=== PATIENT | female | born 1950 | race Caucasian/White ===

== ENCOUNTER 2021-11-02 18:59 | Inpatient (IN) ==
[2021-11-02] MEDS ORDERED: Naloxone 0.4 MG/ML INJ IVP PRN (23:36)
[2021-11-02] MEDS ORDERED: Ringers Solution, Lactated 250 ML IVC PRN (23:41)
[2021-11-02] MEDS ORDERED: Albumin 25% 25gram/100mL 25 GM/100 ML IV.SOLN IVPB ONE (23:41)
[2021-11-02] MEDS ORDERED: Ringers Solution, Lactated 250 ML IVC ONE (23:43)
[2021-11-03] MEDS ORDERED: Dextrose Gel 15 GM/37.5 ML TUBE PO PRN ×2 (00:12)
[2021-11-03] MEDS ORDERED: D5% in Water 1,000 ML IVC PRN (00:12)
[2021-11-03] MEDS ORDERED: *HR* Dextrose 50 % in Water (Syg) 50 ML SYRINGE IVP PRN (00:12)
[2021-11-03] MEDS ORDERED: Ringers Solution, Lactated 1,000 ML IVC SCH (00:15)
[2021-11-03 00:22] LABS: Basophils % 0.2 %; Eosinophils # 0.2 K/mcL (0.0-0.6); Eosinophils % 1.5 %; Hematocrit 25.8 % (35.3-44.9); Hemoglobin 7.6 g/dL (11.5-15.4); Immature Granulocytes % 1.2 % (0-4); Lymphocytes # 1.4 K/mcL (0.6-4.6); Lymphocytes % 10.3 %; Mean Corpuscular HGB Conc 29.5 g/dL (31.6-35.5); Mean Corpuscular Hemoglobin 20.2 pg (28.0-33.3); Mean Corpuscular Volume 68.6 fL (83.0-100.0); Monocytes # 0.9 K/mcL (0.0-1.3); Monocytes % 6.9 %; Neutrophils # 10.7 K/mcL (1.6-8.9); Platelet Count 392 K/mcL (140-400); Red Blood Count 3.76 M/mcL (3.82-4.97); Red Cell Distribution Width 19.3 % (11.5-14.5); Segmented Neutrophils % 79.9 %; White Blood Count 13.4 K/mcL (4.3-11.1)
[2021-11-03 00:37] LABS: Albumin 3.3 g/dL (3.5-5.7); Albumin/Globulin Ratio 1.3 (1.1-2.2); Bilirubin,Total 0.5 mg/dL (0.3-1.0); Calcium 8.1 mg/dL (8.6-10.3); Globulin 2.6 g/dL (2.4-3.5); Magnesium 1.9 mg/dL (1.6-2.6); Phosphorous 6.3 mg/dL (2.7-4.5); Total Protein 5.9 g/dL (6.4-8.9)
[2021-11-03 00:39] LABS: Prothrombin Time 11.6 Seconds (9.4-12.1)
[2021-11-03 00:41] LABS: Anisocytosis 1+ (Not Present); Microcytosis Present (Not Present); Platelet Estimate Normal (Normal)
[2021-11-03 00:52] LABS: Thyroid Stimulating Hormone 1.306 mcIU/mL (0.340-5.600)
[2021-11-03] MEDS: Cefepime HCl 1,000 MG in 0.9 % Sodium Chloride 10 ML IVP SCH ×3 (00:58→19:55)
[2021-11-03] MEDS ORDERED: Ringers Solution, Lactated 500 ML IVC ONE (01:21)
[2021-11-03] MEDS ORDERED: Ipratropium/Albuterol Neb 3 ML IH PRN (01:35)
[2021-11-03 02:45] LABS: Folate 9.6 ng/mL (3.0-16.0)
[2021-11-03] MEDS ORDERED: 0.9 % Sodium Chloride 250 ML ONE (04:10)
[2021-11-03] MEDS ORDERED: Albumin 25% 25gram/100mL 25 GM/100 ML IV.SOLN IVPB ONE (04:31)
[2021-11-03 05:59] LABS: Sodium, Urine 30.1 mEq/L
[2021-11-03 06:01] LABS: Bacteria,Urine Few per hpf (None-Few); Bilirubin,Urine Negative (Negative); Blood,Urine Small (Negative); Clarity,Urine Turbid (Clear); Color,Urine Light-Yellow (Yellow); Glucose,Urine (UA) Normal (Normal); Ketones,Urine Negative (Negative); Leukocyte Esterase,Urine Negative (Negative); Mucus,Urine Few per lpf (None-Few); Nitrite,Urine Negative (Negative); Protein,Urine 70 mg/dL (Neg-Trace); Specific Gravity,Urine 1.009 (1.010-1.025); Squamous Epithelial Cell,Urine Few per hpf (None-Few); Urobilinogen,Urine Normal (Normal)
[2021-11-03] MEDS: Norepinephrine 4 MG/254 ML IV.SOLN IVC SCH ×3 (06:07→22:02)
[2021-11-03] MEDS: Pantoprazole 40 MG VIAL IVP SCH (09:12)
[2021-11-03] MEDS: Cyanocobalamin (B-12) 1,000 MCG/ML VIAL SQ SCH (09:15)
[2021-11-03] MEDS: Insulin LISPRO 300 UNITS/3 ML VIAL SUBQ SCH ×4 (09:21→22:50)
[2021-11-03 11:59] LABS: Protein/Creatinine Ratio,Urine 1.56 mg/mg (0.00-0.20)
[2021-11-03] MEDS ORDERED: 0.9 % Sodium Chloride 1,000 ML IVC SCH (12:45)
[2021-11-03 15:06] LABS: Calcium 8.2 mg/dL (8.6-10.3); Potassium 3.6 mEq/L (3.5-5.1)
[2021-11-03] MEDS: Albumin Human 5% 12.5 GM/250 ML IV.SOLN IVC SCH ×2 (15:34→19:51)
[2021-11-03] MEDS: *HR* Heparin 5,000 UNIT/ML VIAL SQ SCH (22:03)
[2021-11-04] MEDS: Norepinephrine 4 MG/254 ML IV.SOLN IVC SCH ×3 (02:41→20:11)
[2021-11-04 05:18] LABS: Albumin 3.7 g/dL (3.5-5.7); Calcium 8.8 mg/dL (8.6-10.3); Phosphorous 6.4 mg/dL (2.7-4.5); Potassium 3.6 mEq/L (3.5-5.1); Uric Acid 6.5 mg/dL (2.3-7.6)
[2021-11-04 05:40] LABS: Vitamin D 25 Hydroxy 50 ng/mL (30-80)
[2021-11-04] MEDS: *HR* Heparin 5,000 UNIT/ML VIAL SQ SCH ×3 (05:53→21:08)
[2021-11-04 05:59] LABS: Hepatitis B Surface Antigen Nonreactive (Nonreactive)
[2021-11-04 06:29] LABS: Hepatitis A Antibody IgM Nonreactive (Nonreactive); Hepatitis B Core IgM Nonreactive (Nonreactive)
[2021-11-04 06:30] LABS: Hepatitis C Virus Antibody Nonreactive (Nonreactive)
[2021-11-04] MEDS: Insulin LISPRO 300 UNITS/3 ML VIAL SUBQ SCH ×4 (07:55→20:10)
[2021-11-04] MEDS: Pantoprazole 40 MG VIAL IVP SCH (07:56)
[2021-11-04] MEDS: Cyanocobalamin (B-12) 1,000 MCG/ML VIAL SQ SCH (07:56)
[2021-11-04] MEDS: Cefepime HCl 1,000 MG in 0.9 % Sodium Chloride 10 ML IVP SCH (07:56)
[2021-11-04 09:35] LABS: Basophils # 0.1 K/mcL (0.0-0.2); Basophils % 0.4 %; Eosinophils # 0.2 K/mcL (0.0-0.6); Eosinophils % 1.5 %; Hemoglobin 8.7 g/dL (11.5-15.4); Lymphocytes # 0.8 K/mcL (0.6-4.6); Lymphocytes % 6.3 %; Mean Corpuscular Hemoglobin 20.9 pg (28.0-33.3); Mean Corpuscular Volume 72.1 fL (83.0-100.0); Monocytes # 1.3 K/mcL (0.0-1.3); Monocytes % 9.6 %; Neutrophils # 10.9 K/mcL (1.6-8.9); Platelet Count 425 K/mcL (140-400); Red Blood Count 4.16 M/mcL (3.82-4.97); Red Cell Distribution Width 20.6 % (11.5-14.5); Segmented Neutrophils % 81.2 %; White Blood Count 13.4 K/mcL (4.3-11.1)
[2021-11-04] MEDS: 0.9 % Sodium Chloride 1,000 ML IVC SCH ×2 (11:31→20:11)
[2021-11-04 14:30] LABS: VBG HCO3 33 mEq/L (21-27); VBG PCO2 71 mmHg (41-51); VBG PH 7.27 pH Units (7.32-7.42); VBG PO2 49 mmHg (25-50)
[2021-11-04 14:52] LABS: Potassium 3.4 mEq/L (3.5-5.1)
[2021-11-04] MEDS: Piperacillin/Tazobactam 3.375 GM in 0.9 % Sodium Chloride Mini Bag 100 ML IVPB SCH (23:27)
[2021-11-05 03:46] LABS: Potassium 4.2 mEq/L (3.5-5.1)
[2021-11-05 03:47] LABS: Calcium 8.1 mg/dL (8.6-10.3)
[2021-11-05] MEDS: Melatonin 3 MG TABLET PO PRN (04:16)
[2021-11-05] MEDS: *HR* Heparin 5,000 UNIT/ML VIAL SQ SCH ×3 (04:32→21:46)
[2021-11-05 04:46] LABS: Basophils % 0.4 %; Hemoglobin 7.6 g/dL (11.5-15.4); Red Cell Distribution Width 20.8 % (11.5-14.5)
[2021-11-05 04:48] LABS: Basophils # 0.1 K/mcL (0.0-0.2); Eosinophils # 0.3 K/mcL (0.0-0.6); Eosinophils % 2.3 %; Lymphocytes # 1.2 K/mcL (0.6-4.6); Lymphocytes % 9.9 %; Mean Corpuscular HGB Conc 29.2 g/dL (31.6-35.5); Mean Corpuscular Hemoglobin 21.4 pg (28.0-33.3); Mean Corpuscular Volume 73.2 fL (83.0-100.0); Monocytes # 1.3 K/mcL (0.0-1.3); Neutrophils # 8.8 K/mcL (1.6-8.9); Platelet Count 359 K/mcL (140-400); Red Blood Count 3.55 M/mcL (3.82-4.97); Segmented Neutrophils % 75.4 %; White Blood Count 11.7 K/mcL (4.3-11.1)
[2021-11-05 05:25] LABS: Anisocytosis 1+ (Not Present); Hypochromasia Present (Not Present); Platelet Estimate Normal (Normal)
[2021-11-05] MEDS: Norepinephrine 4 MG/254 ML IV.SOLN IVC SCH (08:26)
[2021-11-05] MEDS: Insulin LISPRO 300 UNITS/3 ML VIAL SUBQ SCH ×3 (08:26→20:19)
[2021-11-05] MEDS: Piperacillin/Tazobactam 3.375 GM in 0.9 % Sodium Chloride Mini Bag 100 ML IVPB SCH ×3 (08:33→23:27)
[2021-11-05] MEDS: Cyanocobalamin (B-12) 1,000 MCG/ML VIAL SQ SCH (08:35)
[2021-11-05] MEDS: *HR* OxyCODONE/APAP 5/325 TABLET PO PRN (15:21)
[2021-11-05] MEDS: Albuterol 2.5 MG/3 ML NEBULIZER IH SCH ×2 (15:42→23:08)
[2021-11-05] MEDS ORDERED: Sennosides 8.6 MG TABLET PO PRN (22:44)
[2021-11-06 01:33] LABS: Basophils % 0.4 %; Hematocrit 26.5 % (35.3-44.9); Hemoglobin 7.6 g/dL (11.5-15.4); Immature Granulocytes % 0.8 % (0-4); Mean Corpuscular HGB Conc 28.7 g/dL (31.6-35.5); Platelet Count 334 K/mcL (140-400)
[2021-11-06 01:34] LABS: Basophils # 0.1 K/mcL (0.0-0.2); Eosinophils # 0.3 K/mcL (0.0-0.6); Eosinophils % 2.8 %; Lymphocytes # 0.9 K/mcL (0.6-4.6); Lymphocytes % 8.2 %; Mean Corpuscular Volume 73.2 fL (83.0-100.0); Mean Platelet Volume 8.7 fL (9.4-12.4); Monocytes # 0.9 K/mcL (0.0-1.3); Monocytes % 7.7 %; Neutrophils # 9.1 K/mcL (1.6-8.9); Red Blood Count 3.62 M/mcL (3.82-4.97); Segmented Neutrophils % 80.1 %; White Blood Count 11.3 K/mcL (4.3-11.1)
[2021-11-06 01:51] LABS: Hypochromasia Present (Not Present); Platelet Estimate Normal (Normal)
[2021-11-06 01:53] LABS: Potassium 3.2 mEq/L (3.5-5.1)
[2021-11-06] MEDS ORDERED: *HR* Heparin 5,000 UNIT/ML VIAL IVP ONE ×2 (02:19→02:27)
[2021-11-06] MEDS ORDERED: *HR* Heparin 5,000 UNIT/ML VIAL IVP PRN ×4 (02:19→02:27)
[2021-11-06] MEDS ORDERED: Heparin 25,000UNIT/250ML 1/2NS 25,000 UNIT/250 ML IV.SOLN IVC SCH (02:30)
[2021-11-06] MEDS: Heparin 25,000UNIT/250ML 1/2NS 25,000 UNIT/250 ML IV.SOLN IVC SCH ×2 (03:14→23:20)
[2021-11-06] MEDS: *HR* OxyCODONE/APAP 5/325 TABLET PO PRN (03:32)
[2021-11-06 03:39] LABS: Hemoglobin 7.7 g/dL (11.5-15.4); Mean Platelet Volume 8.9 fL (9.4-12.4); Red Cell Distribution Width 21.2 % (11.5-14.5)
[2021-11-06 03:40] LABS: Mean Corpuscular HGB Conc 28.5 g/dL (31.6-35.5); Mean Corpuscular Hemoglobin 21.3 pg (28.0-33.3); Mean Corpuscular Volume 74.6 fL (83.0-100.0); Platelet Count 352 K/mcL (140-400); Red Blood Count 3.62 M/mcL (3.82-4.97); White Blood Count 11.6 K/mcL (4.3-11.1)
[2021-11-06 03:52] LABS: Heparin anti-factor XA UFH < 0.04 IU/mL (0.30-0.70); INR 1.1; Prothrombin Time 12.5 Seconds (9.4-12.1)
[2021-11-06] MEDS: Ondansetron ODT 4 MG TAB.RAPDIS SL PRN ×2 (04:59→23:30)
[2021-11-06] MEDS: Insulin LISPRO 300 UNITS/3 ML VIAL SUBQ SCH ×5 (07:17→19:58)
[2021-11-06] MEDS: Albuterol 2.5 MG/3 ML NEBULIZER IH SCH ×3 (07:21→23:56)
[2021-11-06] MEDS: Piperacillin/Tazobactam 3.375 GM in 0.9 % Sodium Chloride Mini Bag 100 ML IVPB SCH ×3 (07:55→23:21)
[2021-11-06] MEDS: Cyanocobalamin (B-12) 1,000 MCG/ML VIAL SQ SCH (07:56)
[2021-11-06] MEDS: Aspirin Enteric Coated 81 MG Tablet PO SCH (07:56)
[2021-11-06] MEDS ORDERED: Furosemide 40 MG/4 ML VIAL IVP ONE (08:54)
[2021-11-06] MEDS ORDERED: Perflutren Lipid Microsphere 1.3 ML in 0.9 % Sodium Chloride 8.7 ML IVP PRN (08:56)
[2021-11-06] MEDS ORDERED: Ringers Solution, Lactated 1,000 ML IVC SCH (09:15)
[2021-11-06] MEDS ORDERED: traZODone 50 MG TABLET PO PRN (10:20)
[2021-11-06 11:00] LABS: ABG Base Excess 8 mEq/L (-2 to 3); ABG HCO3 35 mEq/L (21-27); ABG Oxygen Saturation 90 % (95-98); ABG PCO2 66 mmHg (35-45); ABG PH 7.33 pH Units (7.32-7.45); ABG PO2 64 mmHg (85-104); ABG TCO2 37 mEq/L (20-26)
[2021-11-06 12:10] LABS: Adenovirus Not Detected (Not Detect); Bordetella Pertussis Not Detected (Not Detect); Chlamydophila pneumoniae Not Detected (Not Detect); Coronavirus 229E Not Detected (Not Detect); Coronavirus HKU1 Not Detected (Not Detect); Coronavirus NL63 Not Detected (Not Detect); Coronavirus OC43 Not Detected (Not Detect); Human Metapneumovirus Not Detected (Not Detect); Human Rhinovirus/Enterovirus Not Detected (Not Detect); Influenza A Subtype 2009 H1 Not Detected (Not Detect); Influenza B Not Detected (Not Detect); Mycoplasma pneumoniae Not Detected (Not Detect); Parainfluenza Virus 1 Not Detected (Not Detect); Parainfluenza Virus 2 Not Detected (Not Detect); Parainfluenza Virus 3 Not Detected (Not Detect); Parainfluenza Virus 4 Not Detected (Not Detect); Respiratory Syncytial Virus Not Detected (Not Detect); SARS-CoV-2 Not Detected (Not Detect)
[2021-11-07 05:46] LABS: Mean Corpuscular Volume 74.7 fL (83.0-100.0); Red Cell Distribution Width 21.4 % (11.5-14.5)
[2021-11-07 05:47] LABS: Hematocrit 24.5 % (35.3-44.9); Hemoglobin 7.1 g/dL (11.5-15.4); Mean Corpuscular Hemoglobin 21.6 pg (28.0-33.3); Mean Platelet Volume 8.9 fL (9.4-12.4); Platelet Count 352 K/mcL (140-400); Red Blood Count 3.28 M/mcL (3.82-4.97); White Blood Count 8.7 K/mcL (4.3-11.1)
[2021-11-07 06:15] LABS: Calcium 9.2 mg/dL (8.6-10.3); Potassium 3.6 mEq/L (3.5-5.1)
[2021-11-07] MEDS: Albuterol 2.5 MG/3 ML NEBULIZER IH SCH (07:48)
[2021-11-07] MEDS ORDERED: Iron Sucrose Complex 250 MG in 0.9 % Sodium Chloride 250 ML IVPB SCH (09:00)
[2021-11-07] MEDS: Insulin LISPRO 300 UNITS/3 ML VIAL SUBQ SCH ×3 (13:19→20:30)
[2021-11-07] MEDS ORDERED: Albuterol 2.5 MG/3 ML NEBULIZER IH PRN (13:33)
[2021-11-07] MEDS: Albumin 25% 25gram/100mL 25 GM/100 ML IV.SOLN IVPB SCH ×2 (15:10→20:45)
[2021-11-07] MEDS: Piperacillin/Tazobactam 3.375 GM in 0.9 % Sodium Chloride Mini Bag 100 ML IVPB SCH (15:10)
[2021-11-07 16:12] LABS: Basophils % 0.5 %; Hemoglobin 7.2 g/dL (11.5-15.4); Immature Granulocytes % 0.5 % (0-4)
[2021-11-07 16:13] LABS: Eosinophils # 0.3 K/mcL (0.0-0.6); Eosinophils % 3.7 %; Hematocrit 25.1 % (35.3-44.9); Lymphocytes % 13.1 %; Mean Corpuscular HGB Conc 28.7 g/dL (31.6-35.5); Mean Corpuscular Hemoglobin 21.6 pg (28.0-33.3); Mean Corpuscular Volume 75.1 fL (83.0-100.0); Mean Platelet Volume 8.7 fL (9.4-12.4); Monocytes # 0.8 K/mcL (0.0-1.3); Monocytes % 9.5 %; Platelet Count 342 K/mcL (140-400); Red Blood Count 3.34 M/mcL (3.82-4.97); Red Cell Distribution Width 21.6 % (11.5-14.5); Segmented Neutrophils % 72.7 %; White Blood Count 7.9 K/mcL (4.3-11.1)
[2021-11-07 16:15] LABS: Neutrophils # 5.7 K/mcL (1.6-8.9)
[2021-11-07] MEDS: Ondansetron ODT 4 MG TAB.RAPDIS SL PRN (16:40)
[2021-11-07 16:46] LABS: Anisocytosis 1+ (Not Present); Hypochromasia Present (Not Present); Microcytosis Present (Not Present); Ovalocytes 1+ (Not Present); Platelet Estimate Normal (Normal)
[2021-11-07 17:19] LABS: Urine Collection Volume NOT PROVIDED mL
[2021-11-07] MEDS ORDERED: 0.9 % Sodium Chloride 500 ML ONE (17:34)
[2021-11-08] MEDS: Melatonin 3 MG TABLET PO PRN (00:27)
[2021-11-08] MEDS: Piperacillin/Tazobactam 3.375 GM in 0.9 % Sodium Chloride Mini Bag 100 ML IVPB SCH ×2 (03:07→14:04)
[2021-11-08] MEDS: Albumin 25% 25gram/100mL 25 GM/100 ML IV.SOLN IVPB SCH ×3 (03:08→19:58)
[2021-11-08 05:51] LABS: Red Cell Distribution Width 22.2 % (11.5-14.5)
[2021-11-08 05:52] LABS: Hematocrit 25.5 % (35.3-44.9); Hemoglobin 7.4 g/dL (11.5-15.4); Mean Corpuscular Hemoglobin 22.4 pg (28.0-33.3); Mean Platelet Volume 8.8 fL (9.4-12.4); Platelet Count 321 K/mcL (140-400); Red Blood Count 3.31 M/mcL (3.82-4.97); White Blood Count 7.3 K/mcL (4.3-11.1)
[2021-11-08 06:15] LABS: Potassium 3.3 mEq/L (3.5-5.1)
[2021-11-08] MEDS: Insulin LISPRO 300 UNITS/3 ML VIAL SUBQ SCH ×4 (08:00→20:05)
[2021-11-08] MEDS: Aspirin Enteric Coated 81 MG Tablet PO SCH (08:05)
[2021-11-08 10:46] LABS: ANA IgG by ELISA NONE DETECTED (None Detected)
[2021-11-08 13:03] LABS: Kappa Qnt Free Light Chains 66.13 mg/L (3.30-19.40); Lambda Qnt Free Light Chains 32.94 mg/L (5.71-26.30)
[2021-11-08] MEDS ORDERED: *HR* Heparin 5,000 UNIT/ML VIAL SQ SCH (18:00)
[2021-11-08] MEDS: *HR* Heparin 5,000 UNIT/ML VIAL SQ SCH (21:25)
[2021-11-09] MEDS: Melatonin 3 MG TABLET PO PRN (01:30)
[2021-11-09] MEDS: Piperacillin/Tazobactam 3.375 GM in 0.9 % Sodium Chloride Mini Bag 100 ML IVPB SCH ×3 (01:31→21:04)
[2021-11-09] MEDS: Albumin 25% 25gram/100mL 25 GM/100 ML IV.SOLN IVPB SCH ×3 (04:12→19:47)
[2021-11-09] MEDS: *HR* Heparin 5,000 UNIT/ML VIAL SQ SCH ×3 (05:37→21:05)
[2021-11-09] MEDS: *HR* OxyCODONE/APAP 5/325 TABLET PO PRN (06:11)
[2021-11-09 06:27] LABS: Basophils % 0.6 %; Eosinophils # 0.3 K/mcL (0.0-0.6); Eosinophils % 4.5 %; Hematocrit 27.3 % (35.3-44.9); Hemoglobin 7.7 g/dL (11.5-15.4); Immature Granulocytes % 0.7 % (0-4); Lymphocytes # 0.9 K/mcL (0.6-4.6); Lymphocytes % 13.5 %; Mean Corpuscular HGB Conc 28.2 g/dL (31.6-35.5); Mean Corpuscular Hemoglobin 21.8 pg (28.0-33.3); Mean Corpuscular Volume 77.3 fL (83.0-100.0); Mean Platelet Volume 8.4 fL (9.4-12.4); Monocytes # 0.7 K/mcL (0.0-1.3); Monocytes % 10.3 %; Neutrophils # 4.7 K/mcL (1.6-8.9); Platelet Count 308 K/mcL (140-400); Red Blood Count 3.53 M/mcL (3.82-4.97); Red Cell Distribution Width 22.8 % (11.5-14.5); Segmented Neutrophils % 70.4 %; White Blood Count 6.7 K/mcL (4.3-11.1)
[2021-11-09 06:44] LABS: Albumin 4.4 g/dL (3.5-5.7); Albumin/Globulin Ratio 1.8 (1.1-2.2); Bilirubin,Total 0.7 mg/dL (0.3-1.0); Calcium 9.5 mg/dL (8.6-10.3); Globulin 2.4 g/dL (2.4-3.5); Potassium 3.7 mEq/L (3.5-5.1); Total Protein 6.8 g/dL (6.4-8.9)
[2021-11-09 06:56] LABS: Anisocytosis 2+ (Not Present); Hypochromasia Present (Not Present); Platelet Estimate Normal (Normal)
[2021-11-09] MEDS: Insulin LISPRO 300 UNITS/3 ML VIAL SUBQ SCH ×4 (08:53→20:46)
[2021-11-09] MEDS: Aspirin Enteric Coated 81 MG Tablet PO SCH (08:53)
[2021-11-09] MEDS: Iron Sucrose Complex 250 MG in 0.9 % Sodium Chloride 250 ML IVPB SCH (10:13)
[2021-11-09 23:18] LABS: Alpha 2 Globulin (PEP) 1.11 g/dL (0.48-1.05); Beta Globulin (PEP) 0.69 g/dL (0.48-1.10)
[2021-11-10] MEDS: Albumin 25% 25gram/100mL 25 GM/100 ML IV.SOLN IVPB SCH ×2 (02:44→11:55)
[2021-11-10] MEDS: Piperacillin/Tazobactam 3.375 GM in 0.9 % Sodium Chloride Mini Bag 100 ML IVPB SCH ×3 (02:45→20:09)
[2021-11-10 03:05] LABS: Hematocrit 27.7 % (35.3-44.9); Hemoglobin 7.9 g/dL (11.5-15.4); Mean Corpuscular HGB Conc 28.5 g/dL (31.6-35.5); Mean Corpuscular Hemoglobin 22.4 pg (28.0-33.3); Mean Corpuscular Volume 78.7 fL (83.0-100.0); Mean Platelet Volume 8.5 fL (9.4-12.4); Platelet Count 314 K/mcL (140-400); Red Blood Count 3.52 M/mcL (3.82-4.97); Red Cell Distribution Width 22.8 % (11.5-14.5); White Blood Count 8.4 K/mcL (4.3-11.1)
[2021-11-10 03:26] LABS: Calcium 9.6 mg/dL (8.6-10.3); Potassium 3.4 mEq/L (3.5-5.1)
[2021-11-10] MEDS: *HR* Heparin 5,000 UNIT/ML VIAL SQ SCH ×3 (05:55→20:08)
[2021-11-10 08:17] LABS: IFE Reflexed NOT DONE
[2021-11-10] MEDS: Insulin LISPRO 300 UNITS/3 ML VIAL SUBQ SCH ×4 (08:42→20:07)
[2021-11-10] MEDS: Aspirin Enteric Coated 81 MG Tablet PO SCH (08:42)
[2021-11-10] MEDS: Iron Sucrose Complex 250 MG in 0.9 % Sodium Chloride 250 ML IVPB SCH (11:48)
[2021-11-10] MEDS: NIFEdipine XL (24 HR) 30 MG TAB.ER.24 PO SCH (21:36)
[2021-11-10] MEDS: Melatonin 3 MG TABLET PO PRN (23:03)
[2021-11-11 01:43] LABS: ANCA IFA Titer <1:20 (<1:20)
[2021-11-11] MEDS: *HR* OxyCODONE/APAP 5/325 TABLET PO PRN (01:50)
[2021-11-11 02:30] LABS: Calcium 9.3 mg/dL (8.6-10.3); Potassium 3.3 mEq/L (3.5-5.1)
[2021-11-11 04:44] LABS: ANCA IFA Pattern NONE DETECTED (None Detected); Serine Protease-3 Antibody 1 AU/mL (0-19)
[2021-11-11] MEDS: Piperacillin/Tazobactam 3.375 GM in 0.9 % Sodium Chloride Mini Bag 100 ML IVPB SCH ×3 (05:07→19:42)
[2021-11-11] MEDS: *HR* Heparin 5,000 UNIT/ML VIAL SQ SCH ×3 (05:08→19:43)
[2021-11-11] MEDS: Insulin LISPRO 300 UNITS/3 ML VIAL SUBQ SCH ×4 (07:51→21:16)
[2021-11-11] MEDS: Iron Sucrose Complex 250 MG in 0.9 % Sodium Chloride 250 ML IVPB SCH (07:52)
[2021-11-11] MEDS: Aspirin Enteric Coated 81 MG Tablet PO SCH (07:52)
[2021-11-11] MEDS: Gabapentin 100 MG CAPSULE PO SCH ×3 (09:23→19:43)
[2021-11-11] MEDS: Furosemide 20 MG TABLET PO SCH (09:23)
[2021-11-11] MEDS: NIFEdipine XL (24 HR) 30 MG TAB.ER.24 PO SCH (21:18)
[2021-11-12] MEDS: *HR* Heparin 5,000 UNIT/ML VIAL SQ SCH ×3 (04:46→22:22)
[2021-11-12] MEDS: Piperacillin/Tazobactam 3.375 GM in 0.9 % Sodium Chloride Mini Bag 100 ML IVPB SCH (04:46)
[2021-11-12] MEDS: Insulin LISPRO 300 UNITS/3 ML VIAL SUBQ SCH ×4 (08:48→20:39)
[2021-11-12] MEDS: Furosemide 20 MG TABLET PO SCH (09:00)
[2021-11-12] MEDS: Aspirin Enteric Coated 81 MG Tablet PO SCH (09:00)
[2021-11-12] MEDS: Gabapentin 100 MG CAPSULE PO SCH ×3 (09:00→20:39)
[2021-11-12] MEDS: *HR* OxyCODONE/APAP 5/325 TABLET PO PRN (20:37)
[2021-11-13] MEDS: *HR* Heparin 5,000 UNIT/ML VIAL SQ SCH ×2 (05:17→14:27)
[2021-11-13] MEDS: Insulin LISPRO 300 UNITS/3 ML VIAL SUBQ SCH ×2 (07:38→12:05)
[2021-11-13 07:47] VITALS: TEMP 97
[2021-11-13] MEDS ORDERED: amLODIPine 5 MG TABLET PO SCH (09:00)
[2021-11-13] MEDS: Gabapentin 100 MG CAPSULE PO SCH ×2 (10:03→14:27)
[2021-11-13] MEDS: Aspirin Enteric Coated 81 MG Tablet PO SCH (10:03)
[2021-11-13] MEDS: Furosemide 20 MG TABLET PO SCH (10:03)
[2021-11-13 11:16] VITALS: BP 140/42; PULSE 57; O2SAT 96
== END 2021-11-13 16:21 | DRG 871 ==
LOC: 2NNU → SUATTDRO 23:40 → 2NENU 11-07 15:33
PROVIDERS: ADMIT Family Medicine; ATTEND Internal Medicine